=== PATIENT | female | born 1955 | race Caucasian/White ===

== ENCOUNTER 2017-05-17 12:57 | Emergency (ER) | payer OTHER ==
[~2017-05-17] VITALS: Ht 167.6 cm; Wt 89.0 kg
[~2017-05-17 12:57] MED LIST: AMITRIPTYLINE100 MG PO; CITALOPRAM HBR40 MG PO; ELIQUIS5 MG PO; METOPROLOL SUC100 MG PO; METOPROLOL SUCC50 MG PO; OMEPRAZOLE20 MG PO; ONE DAILY TABL1 EAC1 PO
[2017-05-17 17:23] VITALS: BP 159/99
== END 2017-05-17 17:24 | disposition home or self-care (01) ==
LOC: EME 12:57
DX: S80.11XA Contusion of right lower leg, initial encounter (principal); I10 Essential (primary) hypertension; W18.30XA Fall on same level, unspecified, initial encounter; Z88.6 Allergy status to analgesic agent
CPT/HCPCS: 73590; 73610; 93971; 99281; 99284